=== PATIENT | female | born 1985 | race Caucasian/White ===

== ENCOUNTER 2020-06-14 23:14 | Emergency (ER) | payer MEDICAID ==
[~2020-06-14] VITALS: Ht 157.5 cm; Wt 46.3 kg
[2020-06-14 23:14] VITALS: BP_SYST 118
--- NOTE | 2020-06-14 23:14 | NUR ---
Patient to ER bed 03 to gown for evaluation. Side rails up.
--- NOTE | 2020-06-15 00:05 | NUR ---
Pt brought in by . pt awake, alert, oriented x4. pt has chief complaint of vaginal/pelvic pain new onset approx 2 days ago. 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 Pt states she stopped taking medication approx 2 years ago for said condition. Pt states re-occurence of orgasmic symptoms started approx 2 weeks ago and vaginal pain started approx 2 days ago with increasing severity. Pt denies chest pain, nausea, vomiting, diarrhea, shortness of breath. pt denies any other medical complaint at this time.
--- NOTE | 2020-06-15 00:11 | NUR ---
ER Dr. Gustafson at bedside examining patient.
[2020-06-15 00:31] LABS: BILIRUBIN,URINE NEGATIVE (NEGATIVE); BLOOD, URINE NEGATIVE (NEGATIVE); CLARITY/URINE SL CLOUDY (CLEAR); COLOR,URINE YELLOW (YELLOW); GLUCOSE,URINE NEGATIVE (NEGATIVE); KETONES,URINE NEGATIVE (NEGATIVE); LEUKOCYTE ESTERASE ,URINE NEGATIVE (NEGATIVE); NITRITE, URINE NEGATIVE (NEGATIVE); PROTEIN URINE NEGATIVE (NEGATIVE)
--- NOTE | 2020-06-15 00:35 | NUR ---
# 20 gauge angiocath placed to right forearm. Use of asceptic technique. Opsite placed over site. Blood return noted. Blood for lab drawn from site. Flushed with 10 cc of normal saline. No evidence of infiltration noted. Patient tolerated well.
--- NOTE | 2020-06-15 01:00 | NUR ---
Note undone in EDM - 06/15/20 at 0112 by [email or web address] Patient given written and verbal discharge instructions and verbalizes understanding. ER discussed with patient the results and treatment provided. Patient in stable condition. ID arm band removed. No IV No RX given. Patient educated on pain management and to follow up with PMD. Pain Scale 0/10. Opportunity for questions provided and answered. Medication side effect fact sheet provided.
[2020-06-15 01:01] LABS: BASOPHILS % (AUTO) 0.3 % (0.0-2.0); EOSINOPHILS # (AUTO) 0.1 K/uL (0.0-0.4); EOSINOPHILS % (AUTO) 2.2 % (0.0-4.0); HEMATOCRIT 37.1 % (36-48); HEMOGLOBIN 12.5 g/dL (12.0-16.0); LYMPHOCYTES # (AUTO) 2.3 K/uL (1.0-5.5); LYMPHOCYTES % (AUTO) 42.5 % (20.5-51.5); MEAN CORPUSCULAR HEMOGLOBIN 32 pg (27-31); MEAN CORPUSCULAR HGB CONC 34 % (32-36); MEAN CORPUSCULAR VOLUME 93 fL (79.0-98.0); MONOCYTES # (AUTO) 0.5 K/uL (0.0-1.0); MONOCYTES % (AUTO) 9.4 % (1.7-9.3); NEUTROPHILS # (AUTO) 2.5 K/uL (1.8-7.7); NEUTROPHILS % (AUTO) 45.6 % (40.0-70.0); PLATELET COUNT (AUTO) 130 K/uL (130-430); RED BLOOD CELL COUNT(AUTO) 3.97 MIL/uL (4.2-6.2); RED CELL DISTRIBUTION WIDTH 14.1 % (9.0-15.0); WHITE BLOOD COUNT (AUTO) 5.4 K/uL (4.8-10.8)
--- NOTE | 2020-06-15 01:03 | NUR ---
Pt taken to Ultrasound Via Wheelchair by water technician. SHAUNNA Vila Chaperoning.
[2020-06-15 01:12] LABS: CALCIUM 8.6 mg/dL (8.4-11.0); CREATININE 0.85 mg/dL (0.55-1.30); POTASSIUM 3.6 mmol/L (3.5-5.1)
[2020-06-15 01:23] LABS: ALBUMIN 3.8 g/dL (3.4-4.8); TOTAL BILIRUBIN 0.7 mg/dL (0.0-1.0)
--- NOTE | 2020-06-15 01:35 | NUR ---
Pt Returned from Ultrasound Via Wheelchair. returned to Bed.
--- NOTE | 2020-06-15 01:40 | NUR ---
Dr. Gustafson bedside performing vaginal exam. Jennifer, RN Bedside chaperoning.
[2020-06-15] MEDS ORDERED: KETOROLAC TROMETHAMINE 30 MG VIAL IVP ONE (02:00)
[2020-06-15] MEDS ORDERED: KETOROLAC TROMETHAMINE 30 MG VIAL ONE (02:08)
[2020-06-15 02:30] VITALS: BP_SYST 116
--- NOTE | 2020-06-15 02:30 | NUR ---
Patient given written and verbal discharge instructions and verbalizes understanding. ER MD discussed with patient the results and treatment provided. Patient in stable condition. ID arm band removed. IV catheter removed intact and dressing applied, no active bleeding. Rx of motrin and flagyl given. Patient educated on pain management and to follow up with PMD. Pain Scale 1/10. Opportunity for questions provided and answered. Medication side effect fact sheet provided.
[2020-06-17 04:06] LABS: CHLAMYDIA TRACHOMATIS NAA Negative (Negative); NEISSERIA GONORRHOEAE NAA Negative (Negative)
== END 2020-06-15 02:30 | disposition home or self-care (01) ==
LOC: SED 23:14
DX: N76.0 Acute vaginitis (principal); R10.32 Left lower quadrant pain
CPT/HCPCS: 36415; 76830; 76857; 80053; 81003; 83690; 84702; 85025; 87210; 87491; 87591; 96374; 99284; J1885

== ENCOUNTER 2020-12-25 15:57 | Emergency (ER) | payer MEDICAID ==
[~2020-12-25] VITALS: Ht 157.5 cm; Wt 44.5 kg
[2020-12-25 16:30] VITALS: BP_SYST 107
[2020-12-25 16:37] LABS: BILIRUBIN,URINE NEGATIVE (NEGATIVE); BLOOD, URINE 3+ (NEGATIVE); CLARITY/URINE CLEAR (CLEAR); COLOR,URINE YELLOW (YELLOW); GLUCOSE,URINE NEGATIVE (NEGATIVE); KETONES,URINE NEGATIVE (NEGATIVE); LEUKOCYTE ESTERASE ,URINE NEGATIVE (NEGATIVE); NITRITE, URINE NEGATIVE (NEGATIVE); PROTEIN URINE NEGATIVE (NEGATIVE); UROBILINOGEN,URINE 0.2 (0.2-1.0)
[2020-12-25] MEDS ORDERED: KETOROLAC TROMETHAMINE 60 MG/2 ML VIAL IM ONE (16:45)
[2020-12-25 16:46] LABS: BACTERIA,URINE FEW /HPF (None Seen); MUCUS,URINE None Seen /LPF (None Seen); RBC,URINE 0-3 /HPF (0-3); WBC,URINE 0-3 /HPF (0-3)
[2020-12-25] MEDS ORDERED: HYDR-4272 PO (17:02)
[2020-12-25] MEDS ORDERED: IBUP-1969 PO (17:02)
[2020-12-25 17:26] VITALS: BP_SYST 107
== END 2020-12-25 17:26 | disposition home or self-care (01) ==
LOC: SED 15:57
DX: M54.5 Low back pain (principal); F12.90 Cannabis use, unspecified, uncomplicated
CPT/HCPCS: 81000; 96372; 99283; J1885

== ENCOUNTER 2021-10-06 00:39 | Emergency (ER) | payer MEDICAID ==
[~2021-10-06 00:39] MED LIST: HYDR-4272 PO; IBUP-1969 PO
--- NOTE | 2021-10-06 01:27 | NUR ---
CALLED PT TO BE BROUGHT BACK TO ER. NO ANSWER. LWBS.
== END 2021-10-06 01:26 | disposition left against medical advice (07) ==
LOC: SED 00:39
DX: G43.909 Migraine, unspecified, not intractable, without status migrainosus (principal); Z53.21 Procedure and treatment not carried out due to patient leaving prior to being seen by health care provider

== ENCOUNTER 2021-11-02 22:10 | Emergency (ER) | payer MEDICAID ==
--- NOTE | 2021-11-03 | NUR ---
Patient left without being seen. No further treatment provided. ER MD aware
== END 2021-11-03 | disposition left against medical advice (07) ==
LOC: SED 22:10
DX: K92.1 Melena (principal); Z53.21 Procedure and treatment not carried out due to patient leaving prior to being seen by health care provider

== ENCOUNTER 2022-01-04 18:55 | Emergency (ER) | payer MEDICAID ==
[~2022-01-04] VITALS: Ht 157.5 cm; Wt 45.8 kg
[2022-01-04 19:19] VITALS: BP_SYST 120
[2022-01-04] MEDS ORDERED: NACL 0.9% 1,000 ML IV ONE (19:45)
[2022-01-04] MEDS ORDERED: KETOROLAC TROMETHAMINE 30 MG VIAL IVP ONE (19:45)
[2022-01-04 20:26] LABS: BILIRUBIN,URINE NEGATIVE (NEGATIVE); BLOOD, URINE NEGATIVE (NEGATIVE); CLARITY/URINE CLEAR (CLEAR); COLOR,URINE YELLOW (YELLOW); GLUCOSE,URINE NEGATIVE (NEGATIVE); KETONES,URINE NEGATIVE (NEGATIVE); LEUKOCYTE ESTERASE ,URINE NEGATIVE (NEGATIVE); NITRITE, URINE NEGATIVE (NEGATIVE); PROTEIN URINE NEGATIVE (NEGATIVE); UROBILINOGEN,URINE 0.2 (0.2-1.0)
[2022-01-04 20:27] LABS: BASOPHILS % (AUTO) 0.6 % (0.0-2.0); EOSINOPHILS # (AUTO) 0.2 K/uL (0.0-0.4); EOSINOPHILS % (AUTO) 3.7 % (0.0-4.0); LYMPHOCYTES # (AUTO) 1.8 K/uL (1.0-5.5); LYMPHOCYTES % (AUTO) 39.7 % (20.5-51.5); MEAN CORPUSCULAR HEMOGLOBIN 30 pg (27-31); MEAN CORPUSCULAR HGB CONC 34 % (32-36); MEAN CORPUSCULAR VOLUME 91 fL (79.0-98.0); MONOCYTES # (AUTO) 0.5 K/uL (0.0-1.0); MONOCYTES % (AUTO) 11.7 % (1.7-9.3); NEUTROPHILS % (AUTO) 44.3 % (40.0-70.0); PLATELET COUNT (AUTO) 163 K/uL (130-430); RED CELL DISTRIBUTION WIDTH 14.5 % (9.0-15.0); WHITE BLOOD COUNT (AUTO) 4.6 K/uL (4.8-10.8)
[2022-01-04 20:36] LABS: CALCIUM 7.5 mg/dL (8.4-11.0); CREATININE 0.68 mg/dL (0.55-1.30); POTASSIUM 3.8 mmol/L (3.5-5.1)
[2022-01-04 20:42] LABS: ALBUMIN 3.8 g/dL (3.4-4.8); TOTAL BILIRUBIN 0.4 mg/dL (0.0-1.0)
[2022-01-04] MEDS ORDERED: DIPHENHYDRAMINE INJ 50 MG/ML VIAL IVP ONE (22:00)
[2022-01-04] MEDS ORDERED: MORPHINE 4 MG INJ. 4 MG/ML VIAL IVP ONE (22:00)
[2022-01-04 22:06] VITALS: BP_SYST 115
== END 2022-01-04 22:36 | disposition home or self-care (01) ==
LOC: SED 18:55
DX: R10.31 Right lower quadrant pain (principal); M54.9 Dorsalgia, unspecified; F12.90 Cannabis use, unspecified, uncomplicated; F17.210 Nicotine dependence, cigarettes, uncomplicated; Z79.899 Other long term (current) drug therapy
CPT/HCPCS: 36415; 76830; 76857; 80053; 81003; 81025; 84703; 85025; 96361; 96374; 96375; 99284; J1200; J1885; J2270; J7030

== ENCOUNTER 2022-07-19 00:04 | Emergency (ER) | payer MEDICAID ==
[~2022-07-19] VITALS: Ht 157.5 cm; Wt 44.5 kg
[2022-07-19 00:15] VITALS: BP_SYST 111
--- NOTE | 2022-07-19 00:49 | NUR ---
Patient to ER bed 2 to gown for evaluation. Side rails up. Report given to NIKHIL MAZA(REG).
[2022-07-19 02:00] LABS: BASOPHILS % (AUTO) 0.7 % (0.0-2.0); EOSINOPHILS # (AUTO) 0.1 K/uL (0.0-0.4); EOSINOPHILS % (AUTO) 2.2 % (0.0-4.0); HEMATOCRIT 39.5 % (36-48); LYMPHOCYTES % (AUTO) 32.9 % (20.5-51.5); MEAN CORPUSCULAR VOLUME 92 fL (79.0-98.0); MONOCYTES # (AUTO) 0.6 K/uL (0.0-1.0); MONOCYTES % (AUTO) 9.9 % (1.7-9.3); NEUTROPHILS # (AUTO) 3.4 K/uL (1.8-7.7); NEUTROPHILS % (AUTO) 54.3 % (40.0-70.0); PLATELET COUNT (AUTO) 165 K/uL (130-430); RED BLOOD CELL COUNT(AUTO) 4.29 MIL/uL (4.2-6.2); RED CELL DISTRIBUTION WIDTH 14.2 % (9.0-15.0); WHITE BLOOD COUNT (AUTO) 6.2 K/uL (4.8-10.8)
[2022-07-19 02:12] LABS: CALCIUM 8.8 mg/dL (8.4-11.0); CREATININE 0.93 mg/dL (0.55-1.30)
[2022-07-19 02:23] LABS: ALBUMIN 3.7 g/dL (3.4-4.8); TOTAL BILIRUBIN 0.5 mg/dL (0.0-1.0)
--- NOTE | 2022-07-19 02:55 | NUR ---
Patient given written and verbal discharge instructions and verbalizes understanding. ER MD discussed with patient the results and treatment provided. Patient in stable condition. ID arm band removed. . Patient educated on pain management and to follow up with PMD. Pain Scale . Opportunity for questions provided and answered. Medication side effect fact sheet provided.
== END 2022-07-19 02:55 | disposition home or self-care (01) ==
LOC: SED 00:04
DX: R29.0 Tetany (principal); E86.0 Dehydration; Z79.899 Other long term (current) drug therapy
CPT/HCPCS: 36415; 80053; 83735; 85025; 99283

== ENCOUNTER 2024-08-22 08:24 | Emergency (ER) | payer MEDICAID ==
[~2024-08-22] VITALS: Ht 157.5 cm; Wt 46.3 kg
[2024-08-22 08:24] VITALS: BP_SYST 102; PULSE 67; RESP 18; TEMP 97.1; O2SAT 98
[2024-08-22 09:13] LABS: BASOPHILS % (AUTO) 0.6 % (0.0-2.0); EOSINOPHILS # (AUTO) 0.1 K/uL (0.0-0.4); EOSINOPHILS % (AUTO) 2.2 % (0.0-4.0); HEMATOCRIT 39.7 % (36-48); HEMOGLOBIN 13.1 g/dL (12.0-16.0); LYMPHOCYTES # (AUTO) 1.2 K/uL (1.0-5.5); LYMPHOCYTES % (AUTO) 29.1 % (20.5-51.5); MEAN CORPUSCULAR HEMOGLOBIN 31 pg (27-31); MEAN CORPUSCULAR HGB CONC 33 % (32-36); MEAN CORPUSCULAR VOLUME 93 fL (79.0-98.0); MONOCYTES # (AUTO) 0.4 K/uL (0.0-1.0); MONOCYTES % (AUTO) 9.6 % (1.7-9.3); NEUTROPHILS # (AUTO) 2.5 K/uL (1.8-7.7); NEUTROPHILS % (AUTO) 58.5 % (40.0-70.0); PLATELET COUNT (AUTO) 202 K/uL (130-430); RED BLOOD CELL COUNT(AUTO) 4.25 MIL/uL (4.2-6.2); WHITE BLOOD COUNT (AUTO) 4.2 K/uL (4.8-10.8)
[2024-08-22 09:33] LABS: PROTHROMBIN TIME 10.3 SECS (9.5-12.5)
[2024-08-22 09:40] LABS: BILIRUBIN,URINE NEGATIVE (NEGATIVE); BLOOD, URINE 3+ (NEGATIVE); CLARITY/URINE CLEAR (CLEAR); COLOR,URINE YELLOW (YELLOW); GLUCOSE,URINE NEGATIVE (NEGATIVE); KETONES,URINE NEGATIVE (NEGATIVE); LEUKOCYTE ESTERASE ,URINE 2+ (NEGATIVE); NITRITE, URINE NEGATIVE (NEGATIVE); PROTEIN URINE 1+ (NEGATIVE)
[2024-08-22 09:41] LABS: ALBUMIN 4.2 g/dL (3.4-4.8); BILIRUBIN,DIRECT 0.2 mg/dL (0.0-0.3); CALCIUM 8.9 mg/dL (8.4-11.0); CREATININE 0.84 mg/dL (0.55-1.30); TOTAL PROTEIN, SERUM 8.1 g/dL (6.4-8.3)
[2024-08-22 09:51] LABS: WBC,URINE 20-50 /HPF (0-3)
[2024-08-22 09:52] LABS: BACTERIA,URINE MODERATE /HPF (None Seen); CALCIUM OXALATE CRYSTALS,UR 0-10 /HPF (None Seen)
[2024-08-22] MEDS ORDERED: NITR-85 PO (10:41)
[2024-08-22] MEDS ORDERED: PHEN-726 PO (10:41)
[2024-08-22 10:48] VITALS: BP_SYST 102; PULSE 67; RESP 18; TEMP 97.1; O2SAT 98
== END 2024-08-22 10:49 | disposition home or self-care (01) ==
LOC: SED 08:24
DX: N39.0 Urinary tract infection, site not specified (principal); R10.30 Lower abdominal pain, unspecified; F12.90 Cannabis use, unspecified, uncomplicated; Z79.899 Other long term (current) drug therapy
CPT/HCPCS: 36415; 80048; 80076; 81000; 81001; 81015; 81025; 82150; 83605; 83690; 85025; 85610; 85730; 87086; 87186; 99284